=== PATIENT | female | born 1935 | race Caucasian/White ===

== ENCOUNTER 2018-07-18 16:21 | Inpatient (IN) | payer MEDICARE, MEDICAID ==
[2018-07-18] MEDS ORDERED: ONDANSETRON 4 MG INJ IV ×2 (17:00→17:30)
[2018-07-18] MEDS ORDERED: ACETAMINOPHEN 325 MG TAB PO (17:00)
[2018-07-18 17:22] LABS: ADD MAN DIFF? NO
[2018-07-18 17:24] LABS: BASOPHILS % 0.2 % (0.0-2.0); EOSINOPHILS # 0.3 10^3/ul (0.0-0.5); EOSINOPHILS % 2.1 % (0.0-7.0); HEMATOCRIT 48.1 % (37.0-47.0); HEMOGLOBIN 15.1 g/dl (12.0-16.0); LYMPHOCYTES # 2.3 10^3/ul (0.8-2.9); MEAN CORPUSCULAR HEMOGLOBIN 25.5 pg (29.0-33.0); MEAN CORPUSCULAR HGB CONC 31.4 g/dl (32.0-37.0); MEAN CORPUSCULAR VOLUME 81.1 fl (82.0-101.0); MEAN PLATELET VOLUME 11.5 fl (7.4-10.4); MONOCYTES % 7.8 % (0.0-11.0); NEUTROPHIL # 9.6 10^3/ul (1.6-7.5); NEUTROPHILS % 72.4 % (39.0-77.0); PLATELET COUNT 251 10^3/UL (140-415); RED BLOOD COUNT 5.93 10^6/ul (4.20-5.40); RED CELL DISTRIBUTION WIDTH 14.9 % (11.5-14.5)
[2018-07-18 17:24] LABS: WHITE BLOOD COUNT 13.3 10^3/ul (4.8-10.8)
[2018-07-18] MEDS ORDERED: HYDROmorphONE 0.5 MG/0.5 ML SYG IV (17:30)
[2018-07-18] MEDS ORDERED: NACL 0.9% 3 ML SYG IV (17:30)
[2018-07-18 17:43] LABS: INR 0.99; PROTIME 13.2 Sec (11.9-14.9)
[2018-07-18 17:44] LABS: PARTIAL THROMBOPLASTIN TIME 29.8 Sec (23.0-35.0)
[2018-07-18 17:46] LABS: ALANINE AMINOTRANSFERASE 21 IU/L (13-69); ALBUMIN 4.3 g/dl (3.3-4.9); ALBUMIN/GLOBULIN RATIO 1.13; ALKALINE PHOSPHATASE 109 IU/L (42-121); ASPARTATE AMINO TRANSFERASE 45 IU/L (15-46); BILIRUBIN,INDIRECT 0.3 mg/dl (0-1.1); BILIRUBIN,TOTAL 0.3 mg/dl (0.2-1.3); BLOOD UREA NITROGEN 43 mg/dl (7-20); CALCIUM 10.5 mg/dl (8.4-10.2); CHLORIDE 90 mmol/L (97-110); CREATININE 2.98 mg/dl (0.44-1.00); GLUCOSE 171 mg/dl (70-220); LIPASE 240 U/L (23-300); POTASSIUM 3.5 mmol/L (3.5-5.1); SODIUM 139 mmol/L (135-144); TOTAL PROTEIN 8.1 g/dl (6.1-8.1)
[2018-07-18 17:52] LABS: ANION GAP 12 (5-13)
[2018-07-18 17:57] LABS: TROPONIN-I 0.016 ng/ml (0.000-0.120)
[2018-07-18 18:06] LABS: CARBON DIOXIDE 37 mmol/L (21-31)
[2018-07-18] MEDS: LIDOCAINE 2% VISC 15 ML CUP PO (18:13)
[2018-07-18] MEDS: LORAZEPAM 2 MG INJ IV (18:13)
[2018-07-18] MEDS ORDERED: GLUCAGON 1 MG INJ IM (18:30)
[2018-07-18] MEDS ORDERED: DEXTROSE 50% 50 ML SYRINGE IV ×2 (18:30)
[2018-07-18] MEDS ORDERED: GLUCOSE GEL 15 GRAM TUBE BUCCAL (18:30)
[2018-07-18] MEDS ORDERED: GLUCOSE GEL 15 GRAM TUBE PO ×2 (18:30)
[2018-07-18 18:47] LABS: IRON 45 ug/dl (35-150)
[2018-07-18 18:57] LABS: % IRON SATURATION 17 % SAT (22-52); TOTAL IRON BINDING CAPACITY 269 ug/dl (241-421)
[2018-07-18] MEDS: INSULIN ASPART [NOVOLOG] 3 ML PEN SC ×2 (19:20→21:00)
[2018-07-18] MEDS: TIOTROPIUM 18 MCG CAPSULE INHA DEV INH (19:22)
[2018-07-18] MEDS: CYANOCOBALAMIN 1000 MCG INJ IM (19:31)
[2018-07-18] MEDS: LACTATED RINGER'S 500 ML IV (19:32)
[2018-07-18] MEDS: PIPER-TAZO 2.25 GM (PMX) 50 ML IVPB (19:47)
[2018-07-18] MEDS: FAMOTIDINE 20 MG INJ IV (22:07)
[2018-07-18] MEDS: DEXTROSE 5%-LR 1,000 ML IV (22:11)
[2018-07-19] MEDS: ALBUTEROL/IPRATROPIUM (NEB) 3 ML AMP NEB ×6 (00:55→21:29)
[2018-07-19] MEDS: ACCU-CHEK XX (02:00)
[2018-07-19] MEDS: DEXTROSE 5%-LR 1,000 ML IV ×3 (04:00→19:00)
[2018-07-19] MEDS: TIOTROPIUM 18 MCG CAPSULE INHA DEV INH (08:41)
[2018-07-19] MEDS: INSULIN ASPART [NOVOLOG] 3 ML PEN SC ×4 (08:44→20:43)
[2018-07-19] MEDS: BUDESONIDE (NEB) 0.5MG/2ML AMP INH ×2 (09:16→21:28)
[2018-07-19] MEDS: ARFORMOTEROL TARTRATE 15MCG/2 ML AMP INH ×2 (09:17→21:28)
[2018-07-19] MEDS: LACTATED RINGER'S 500 ML IV (09:30)
[2018-07-19 10:41] LABS: ADD MAN DIFF? NO
[2018-07-19 10:56] LABS: BASOPHILS % 0.3 % (0.0-2.0); EOSINOPHILS # 0.2 10^3/ul (0.0-0.5); EOSINOPHILS % 1.3 % (0.0-7.0); HEMATOCRIT 43.2 % (37.0-47.0); HEMOGLOBIN 13.6 g/dl (12.0-16.0); LYMPHOCYTES # 1.9 10^3/ul (0.8-2.9); LYMPHOCYTES % 16.1 % (15.0-51.0); MEAN CORPUSCULAR HEMOGLOBIN 25.7 pg (29.0-33.0); MEAN CORPUSCULAR HGB CONC 31.5 g/dl (32.0-37.0); MEAN CORPUSCULAR VOLUME 81.7 fl (82.0-101.0); MONOCYTE # 0.9 10^3/ul (0.3-0.9); MONOCYTES % 7.5 % (0.0-11.0); NEUTROPHIL # 8.6 10^3/ul (1.6-7.5); NEUTROPHILS % 74.5 % (39.0-77.0); PLATELET COUNT 127 10^3/UL (140-415); POSITIVE DIFF @See below; RED BLOOD COUNT 5.29 10^6/ul (4.20-5.40); RED CELL DISTRIBUTION WIDTH 14.6 % (11.5-14.5)
[2018-07-19 10:56] LABS: WHITE BLOOD COUNT 11.5 10^3/ul (4.8-10.8)
[2018-07-19 11:05] LABS: HEMOGLOBIN A1C 7.7 % (0-5.9)
[2018-07-19 11:26] LABS: ALANINE AMINOTRANSFERASE 15 IU/L (13-69); ALBUMIN 3.7 g/dl (3.3-4.9); ALBUMIN/GLOBULIN RATIO 1.19; ALKALINE PHOSPHATASE 92 IU/L (42-121); ANION GAP 9 (5-13); ASPARTATE AMINO TRANSFERASE 43 IU/L (15-46); BILIRUBIN,INDIRECT 0.4 mg/dl (0-1.1); BILIRUBIN,TOTAL 0.4 mg/dl (0.2-1.3); BLOOD UREA NITROGEN 37 mg/dl (7-20); CARBON DIOXIDE 36 mmol/L (21-31); CHLORIDE 96 mmol/L (97-110); CREATININE 2.31 mg/dl (0.44-1.00); GLUCOSE 177 mg/dl (70-220); MAGNESIUM 2.4 mg/dl (1.7-2.5); POTASSIUM 3.5 mmol/L (3.5-5.1); SODIUM 141 mmol/L (135-144); TOTAL PROTEIN 6.8 g/dl (6.1-8.1)
[2018-07-19] MEDS ORDERED: DIATR MEGLU/DIATRIZOATE SODIUM 120 ML BTL (13:25)
[2018-07-19] MEDS: MONTELUKAST 10 MG TAB PO (20:41)
[2018-07-19] MEDS: FAMOTIDINE 20 MG INJ IV (20:41)
[2018-07-20] MEDS: ALBUTEROL/IPRATROPIUM (NEB) 3 ML AMP NEB ×6 (01:10→21:11)
[2018-07-20] MEDS: ACCU-CHEK XX (02:00)
[2018-07-20] MEDS: DEXTROSE 5%-LR 1,000 ML IV ×3 (04:09→16:47)
[2018-07-20 05:52] LABS: ADD MAN DIFF? NO
[2018-07-20 05:59] LABS: WHITE BLOOD COUNT 9.1 10^3/ul (4.8-10.8)
[2018-07-20 05:59] LABS: BASOPHIL # 0.1 10^3/ul (0.0-0.1); BASOPHILS % 0.6 % (0.0-2.0); EOSINOPHILS # 0.3 10^3/ul (0.0-0.5); HEMOGLOBIN 11.9 g/dl (12.0-16.0); LYMPHOCYTES # 1.4 10^3/ul (0.8-2.9); LYMPHOCYTES % 15.5 % (15.0-51.0); MEAN CORPUSCULAR HEMOGLOBIN 26.1 pg (29.0-33.0); MEAN CORPUSCULAR HGB CONC 31.3 g/dl (32.0-37.0); MEAN CORPUSCULAR VOLUME 83.3 fl (82.0-101.0); MONOCYTE # 0.9 10^3/ul (0.3-0.9); MONOCYTES % 9.6 % (0.0-11.0); NEUTROPHIL # 6.4 10^3/ul (1.6-7.5); PLATELET COUNT 156 10^3/UL (140-415); RED BLOOD COUNT 4.56 10^6/ul (4.20-5.40); RED CELL DISTRIBUTION WIDTH 14.7 % (11.5-14.5)
[2018-07-20 06:53] LABS: ALANINE AMINOTRANSFERASE 17 IU/L (13-69); ALBUMIN 3.1 g/dl (3.3-4.9); ALBUMIN/GLOBULIN RATIO 1.19; ALKALINE PHOSPHATASE 78 IU/L (42-121); ANION GAP 5 (5-13); ASPARTATE AMINO TRANSFERASE 24 IU/L (15-46); BILIRUBIN,INDIRECT 0.3 mg/dl (0-1.1); BILIRUBIN,TOTAL 0.3 mg/dl (0.2-1.3); CALCIUM 9.7 mg/dl (8.4-10.2); CARBON DIOXIDE 36 mmol/L (21-31); CHLORIDE 99 mmol/L (97-110); CREATININE 1.94 mg/dl (0.44-1.00); GLUCOSE 185 mg/dl (70-220); POTASSIUM 3.3 mmol/L (3.5-5.1); SODIUM 140 mmol/L (135-144); TOTAL PROTEIN 5.7 g/dl (6.1-8.1)
[2018-07-20 07:14] LABS: BLOOD UREA NITROGEN 26 mg/dl (7-20)
[2018-07-20] MEDS: INSULIN ASPART [NOVOLOG] 3 ML PEN SC ×4 (08:00→20:34)
[2018-07-20] MEDS: BISACODYL 10 MG SUPP PR (09:07)
[2018-07-20] MEDS: TIOTROPIUM 18 MCG CAPSULE INHA DEV INH (09:07)
[2018-07-20] MEDS: ARFORMOTEROL TARTRATE 15MCG/2 ML AMP INH ×2 (09:13→21:10)
[2018-07-20] MEDS: BUDESONIDE (NEB) 0.5MG/2ML AMP INH ×2 (09:14→21:10)
[2018-07-20] MEDS: LACTULOSE 30ML CUP PO (12:59)
[2018-07-20] MEDS: POTASSIUM CHLORIDE (SR) 20 MEQ TAB PO (12:59)
[2018-07-20] MEDS: LACTATED RINGER'S 500 ML IV (15:05)
[2018-07-20] MEDS: FAMOTIDINE 20 MG INJ IV (20:28)
[2018-07-20] MEDS: MONTELUKAST 10 MG TAB PO (20:28)
[2018-07-21] MEDS: ALBUTEROL/IPRATROPIUM (NEB) 3 ML AMP NEB ×6 (01:19→20:20)
[2018-07-21] MEDS: ACCU-CHEK XX (02:00)
[2018-07-21] MEDS: DEXTROSE 5%-LR 1,000 ML IV ×2 (05:28→15:51)
[2018-07-21 06:26] LABS: ANION GAP 3 (5-13); BLOOD UREA NITROGEN 15 mg/dl (7-20); CALCIUM 9.3 mg/dl (8.4-10.2); CARBON DIOXIDE 31 mmol/L (21-31); CHLORIDE 107 mmol/L (97-110); CREATININE 1.58 mg/dl (0.44-1.00); GLUCOSE 160 mg/dl (70-220); POTASSIUM 3.4 mmol/L (3.5-5.1); SODIUM 141 mmol/L (135-144)
[2018-07-21] MEDS: TIOTROPIUM 18 MCG CAPSULE INHA DEV INH (08:33)
[2018-07-21] MEDS: INSULIN ASPART [NOVOLOG] 3 ML PEN SC ×4 (08:36→21:00)
[2018-07-21] MEDS: BUDESONIDE (NEB) 0.5MG/2ML AMP INH ×2 (09:45→20:20)
[2018-07-21] MEDS: ARFORMOTEROL TARTRATE 15MCG/2 ML AMP INH ×2 (12:50→21:37)
[2018-07-21] MEDS: MONTELUKAST 10 MG TAB PO (20:23)
[2018-07-21] MEDS: FAMOTIDINE 20 MG INJ IV (20:23)
[2018-07-22] MEDS: ALBUTEROL/IPRATROPIUM (NEB) 3 ML AMP NEB ×6 (01:14→22:05)
[2018-07-22] MEDS: ACCU-CHEK XX (02:00)
[2018-07-22] MEDS: DEXTROSE 5%-LR 1,000 ML IV ×2 (02:23→12:00)
[2018-07-22] MEDS: INSULIN ASPART [NOVOLOG] 3 ML PEN SC ×4 (08:11→21:00)
[2018-07-22] MEDS: TIOTROPIUM 18 MCG CAPSULE INHA DEV INH (08:17)
[2018-07-22] MEDS: ARFORMOTEROL TARTRATE 15MCG/2 ML AMP INH ×2 (08:56→22:05)
[2018-07-22] MEDS: BUDESONIDE (NEB) 0.5MG/2ML AMP INH ×2 (08:57→22:05)
[2018-07-22] MEDS: FAMOTIDINE 20 MG INJ IV (20:39)
[2018-07-22] MEDS: MONTELUKAST 10 MG TAB PO (20:39)
[2018-07-23] MEDS: ALBUTEROL/IPRATROPIUM (NEB) 3 ML AMP NEB ×4 (01:35→13:00)
[2018-07-23] MEDS: ACCU-CHEK XX (02:00)
[2018-07-23] MEDS: INSULIN ASPART [NOVOLOG] 3 ML PEN SC ×3 (07:57→17:27)
[2018-07-23] MEDS: TIOTROPIUM 18 MCG CAPSULE INHA DEV INH (07:58)
[2018-07-23] MEDS: ARFORMOTEROL TARTRATE 15MCG/2 ML AMP INH (09:00)
[2018-07-23] MEDS: BUDESONIDE (NEB) 0.5MG/2ML AMP INH (09:14)
[2018-07-23] MEDS: FAMOTIDINE 20 MG TAB PO (14:00)
== END 2018-07-23 18:09 | disposition home or self-care (01) | DRG 394 ==
LOC: E/R 16:21 → 2NE 16:46
DX: K43.6 Other and unspecified ventral hernia with obstruction, without gangrene (principal); I13.0 Hypertensive heart and chronic kidney disease with heart failure and stage 1 through stage 4 chronic kidney disease, or unspecified chronic kidney disease; I50.20 Unspecified systolic (congestive) heart failure; Q60.0 Renal agenesis, unilateral; N17.9 Acute kidney failure, unspecified; K56.50 Intestinal adhesions [bands], unspecified as to partial versus complete obstruction; E21.0 Primary hyperparathyroidism; E86.0 Dehydration; E11.22 Type 2 diabetes mellitus with diabetic chronic kidney disease; N18.2 Chronic kidney disease, stage 2 (mild); I27.81 Cor pulmonale (chronic); J44.9 Chronic obstructive pulmonary disease, unspecified; E55.9 Vitamin D deficiency, unspecified; E53.8 Deficiency of other specified B group vitamins; Z98.51 Tubal ligation status; Z90.49 Acquired absence of other specified parts of digestive tract; Z79.84 Long term (current) use of oral hypoglycemic drugs
CPT/HCPCS: 36415; 71045; 74018; 74176; 80048; 80053; 82728; 82962; 83036; 83540; 83690; 83735; 84484; 85025; 85610; 85730; 87040; 93005; 94640; 94664; 99285-25

== ENCOUNTER → 2018-07-18 | Outpatient (CLI) | payer MEDICARE, MEDICAID ==
[~2018-07-18] MED LIST: BARIUM SULF 2% 450 ML BTL (BERRY SMOOTHIE) PO
== END | disposition home or self-care (01) ==
LOC: C/S 08:48
DX: R10.9 Unspecified abdominal pain (principal)
CPT/HCPCS: 74176